=== PATIENT | male | born 1950 | race Caucasian/White ===

== ENCOUNTER → 2023-09-15 08:33 | Outpatient (REF) | payer MEDICARE, BC, SELFPAY | LOC: RAD 08:33 | PROVIDERS: ATTENDING PHYSICIAN Surgery Vascular Surgery; FAMILY PHYSICIAN Family Medicine | DX: I73.9 Peripheral vascular disease, unspecified (principal) | CPT/HCPCS: 93922; 93925 ==

== ENCOUNTER → 2024-03-23 14:43 | Outpatient (REF) | payer MEDICARE, BC, SELFPAY | LOC: RAD 14:43 | PROVIDERS: ATTENDING PHYSICIAN Surgery Vascular Surgery; FAMILY PHYSICIAN Family Medicine | DX: I73.9 Peripheral vascular disease, unspecified (principal) | CPT/HCPCS: 93922; 93925 ==

== ENCOUNTER 2024-06-29 11:09 | Emergency (ER) | payer MEDICARE, BC, SELFPAY ==
[2024-06-29 11:22] VITALS: BP 160/100
--- NOTE | 2024-06-29 11:44 | ED.GENMED ---
History of Present Illness
General
Chief Complaint: Abdominal Symptoms
Source: patient
Exam Limitations: none
Time Seen by Provider: 06/29/24 11:29
Nursing documentation reviewed up to this point in time: agreed with
History of Present Illness
History of Present Illness:
Patient is a 73-year-old male with history hypertension, hyperlipidemia, diabetes presenting to the emergency department for evaluation of epigastric discomfort. Patient states that 2 days ago he had somewhat acute onset of epigastric
discomfort/pressure after eating hard-boiled eggs. He then had an episode of nausea and vomiting after eating lunch shortly after. Symptoms seem to completely resolve and he has been asymptomatic since.
Patient was seen by his primary care provider yesterday who did an EKG in office and said it was normal. He was able to schedule hoseman appointment for mid July. PCP said symptoms might be GI related.
Patient denies any current nausea vomiting, chest pain, shortness of breath, diet, abdominal pain.
Patient remains asymptomatic although his family thought he should be evaluated the emergency department given his cardiac risk factors including hypertension, hyperlipidemia, and diabetes prompting visit today.
Past History
Past History
ED Past Medical History: HTN, Hypercholesterolemia, NIDDM and Other (Peripheral vascular/peripheral arterial disease)
ED Past Surgical History: Tonsilectomy and Other (Right lower extremity peripheral bypass)
Social History
Tobacco: Non-smoker
Alcohol: Occasional
Drug: None
Personal:
Living: with family
Review of Systems
Review of Systems
Allergies reviewed?: Yes
All Other Systems: ROS reviewed and negative except as documented in HPI and ROS
Phy Exam
Physical Exam
Physical Exam:
Vitals: Hypertensive, otherwise vital signs are stable. Afebrile
General: Patient is very well appearing, no acute distress
Skin: Warm and dry, no rashes or lesions
Head: Normocephalic, atraumatic
Eyes: Sclera nonicteric. EOMs intact. No nystagmus.
Throat: Protecting airway
Neck: Normal ROM, no cervical spine tenderness, no meningismus
Cardiac: Regular rate and rhythm, no murmurs.
Pulm: Normal respiratory effort, no wheezes, rales, rhonchi heard on exam.
Abdomen: Abdomen soft. No abdominal tenderness. Negative Ross sign
Extremities: No evidence of cyanosis or edema. Palpable DP pulses bilaterally
Neuro: AAOx3. Grossly intact
Psychiatric: Normal affect.
Course
Orders/Labs/Results
Orders:
Orders
06/29/24 11:42
US Abdomen Complete/Upper Urgent
Comment:
Reason For Exam: Epigastric/RUQ pain
06/29/24 11:43
Electrocardiogram (*1) Urgent
Reason for Study: Abdominal Pain
EKG- Treatment ONCE
06/29/24 11:49
Complete Blood Count/With Diff Urgent
Comprehensive Metabolic Panel Urgent
Lipase Urgent
Troponin I Urgent
Abnormal Lab Results
06/29/24
11:49
RBC 4.51 L 10^6/uL
(4.70-6.10)
Absolute Lymphs (auto) 1.1 L 10^3/uL
(1.2-3.4)
Lymphocytes % 17.1 L %
(20.5-51.1)
Monocytes % 9.7 H %
(1.7-9.3)
BUN 25 H mg/dl
(9-20)
Glucose 174 H mg/dl
(70-99)
Total Bilirubin 1.4 H mg/dl
(0.2-1.3)
06/29/24 11:49
06/29/24 11:49
Vital Signs
Initial and Last Documented VS:
Initial Vital Signs
Temp Pulse Resp BP Pulse Ox
98.0 F 90 16 160/100 98
06/29/24 11:22 06/29/24 11:22 06/29/24 11:22 06/29/24 11:22 06/29/24 11:22
Last Documented Vital Signs
Temp Pulse Resp BP Pulse Ox
98.5 F 85 20 191/74 99
06/29/24 11:51 06/29/24 11:51 06/29/24 11:51 06/29/24 15:15 06/29/24 15:30
MDM/Problems Addressed
Differential Diagnosis Includes:
Not limited to: GERD, gastric ulcer, cholelithiasis, acute cholecystitis, acute coronary syndrome, etc
MDM/Problems Addressed:
73 year old male presenting after episode of post-prandial epigastric pain associated with nausea/vomiting 2 days ago. He has been asymtpomatic since. No associated chest pain or SOB. Normal EKG at PCP yesterday. Vitals and exam as above. While
patient completely asymptomatic in ED differential includes possible GI sources including GERD, biliary colic, gastric ulcer, etc. Lower suspicion for cardiac etiology although will obtain screening EKG and troponin. Will check labs and abdominal US.
Update: EKG shows NSR without ischemic changes. Troponin undetectable - which I feel is sufficient to r/o acute WI since it has been 48 hours since symptoms. Labs unremarkable w/ no leukocytosis or LFT elevation. Lipase normal. US did show
cholelithiasis w/ some sludge. Clinically not consistent with acute cholecystitis as patient is afebrile, asymptomatic, with no leukocytosis or LFT elevation. Overall impression is likely episode of biliary colic 2 days ago. Do not suspect ACS or
cardiac etiology. Given patient is asymptomatic without suspicion for acute cholecysitis feel he is stable for discharge home at this point. Return precautions discussed. Advised low fat diet. General surgery info given for outpatient f/u. He will
keep current appt with cardiology.
Chronic conditions affecting care:
Hypertension
Acute Exacerbation and/or Progression of Chronic Illness:
Acutely hypertensive
*Radiology
Radiology exam reviewed: radiology read reviewed
*Pulse Oximetry
Patient hypoxic: no
*EKG
Interpreted by ED Provider?: Yes
EKG Intrepretation Date: 06/29/24
Interpretation: normal
Comparison EKG: no changes
Heart Rate: 76
Rate: normal
Rhythm: sinus
Center: normal axis
Interval: normal QT interval
Ischemia: no ischemia
*Research Associate Professor Interpretation
Rate: Research Associate Professor- N/A
*Critical Care Note
Total Time (30-74mins, 75-104mins- exclusive of procedures): Not Applicable
ED Attending Note
-
Portions of this chart may have been created with voice recognition software.� Occasional wrong word or��sound alike� substitutions may have occurred due to the inherent limitations of voice recognition software.
Discharge Plan
Departure
Patient Disposition: Home (Routine Discharge)
Date of Disposition: 06/29/24
Time of Disposition: 15:48
Patient with high blood pressure during this ER visit?: Yes
Condition: Good
Covid-19: Not Applicable
Discharge Problem:
Cholelithiases
Instructions: Gallstones ED, Low-fat diet, BLOOD PRESSURE
Prescriptions:
No Action
atorvastatin 40 MG tablet
40 mg PO QPM Qty: 60 0RF
clopidogrel 75 MG tablet
75 mg PO DAILY Qty: 60 0RF
lisinopril 5 MG tablet
5 mg PO DAILY Qty: 60 0RF
metformin 500 MG tablet
500 mg PO DAILY@1400
cefdinir 300 mg Capsule
300 mg PO Q12 14 Days Qty: 28 0RF
Referrals:
Javi Ladd MD [Active] - Call in 1-3 days for appt
Maurice Sheikh DO [Family Provider] -
Activity Restrictions/Additional Instructions:
Return to the emergency department for any chest pain, shortness of breath, fevers, severe abdominal pain, intractable nausea/vomiting, worsening in current symptoms, or any other concerns
-As discussed�your abdominal ultrasound did show evidence of gallstones today. You should follow a low-fat diet. Symptoms�please return to the emergency department. follow-up with general surgery for further evaluation/management.
-You should keep your appointment with cardiology for further evaluation.
Monitor your symptoms closely and return to the emergency department with any acute worsening/new symptoms or any other concerns
Interventions
Interventions:
*Risk Screen - Suicide Last Done: 06/29/24 11:22
*General Assessment Last Done: 06/29/24 11:51
*Neglect/Abuse Screening Last Done: 06/29/24 11:22
*ED- Fall Risk Assessment Last Done: 06/29/24 11:51
*ED COVID-19 Vaccine History Last Done: 06/29/24 11:51
*Nursing Disposition Last Done: 06/29/24 15:56
JV-Qazkvu-Xwkpivelev Assessment Last Done: 06/29/24 11:51
Discharge Date and Time
Discharge Date/Time: 06/29/24 15:58
Print Language: CITIZEN OF [place]
[2024-06-29 11:46] VITALS: BMI 25.8
[2024-06-29 11:48] VITALS: BP 187/89
[2024-06-29 11:51] VITALS: BP 187/89
[2024-06-29 12:00] VITALS: BP 175/101
[2024-06-29 12:03] LABS: % Basophils 0.5 % (0-2); % Eosinophils 1.1 % (0-6); % Immature Granulocytes 0.3 % (0-0.5); % Lymphocytes 17.1 % (20.5-51.1); % Monocytes 9.7 % (1.7-9.3); % Neutrophils 71.3 % (42.2-75.2); Absolute Eosinophils 0.1 10^3/uL (0-0.7); Absolute Lymphocytes 1.1 10^3/uL (1.2-3.4); Absolute Monocytes 0.6 10^3/uL (0.1-0.6); Absolute Neutrophils 4.5 10^3/uL (1.4-6.5); Hematocrit 40.4 % (39.0-52.0); Hemoglobin 13.8 g/dL (13.0-18.0); Mean Corp Hgb Conc. 34.2 g/dL (33.0-37.0); Mean Corpuscular Hgb 30.6 pg (27.0-31.0); Mean Corpuscular Volume 89.6 fL (80.0-94.0); Mean Platelet Volume 9.6 fL (7.4-10.4); Nucleated Red Blood Cells % 0 % (-); Platelet Count 165 10^3/uL (130-400); Red Blood Cell Count 4.51 10^6/uL (4.70-6.10); Red Cell Dist. Width 12.7 % (11.5-14.5); White Blood Cell Count 6.4 10^3/uL (4.8-10.8)
[2024-06-29 12:17] LABS: ALT (SGPT) 21 U/L (0-50); AST (SGOT) 27 U/L (17-59); Albumin 4.6 g/dl (3.5-5.0); Alkaline Phosphatase 59 U/L (38-126); Blood Urea Nitrogen 25 mg/dl (9-20); Calcium 9.7 mg/dl (8.4-10.2); Carbon Dioxide 26 mmol/L (22-30); Chloride 104 mmol/L (98-107); Estimated Creatinine Clearance 78 ml/min; Glucose 174 mg/dl (70-99); Lipase 130 U/L (23-300); Potassium 3.9 mmol/L (3.5-5.1); Sodium 140 mmol/L (135-145); Total Bilirubin 1.4 mg/dl (0.2-1.3); Total Protein 7.6 g/dl (6.3-8.2); eGFR > 60.00
[2024-06-29 12:26] LABS: Troponin I < 0.012 ng/ml
[2024-06-29 15:15] VITALS: BP 191/74
== END 2024-06-29 15:58 | disposition home or self-care (01) ==
LOC: EMR 11:09
PROVIDERS: Physician Assistant; EMERGENCY PHYSICIAN Emergency Medicine; REFERRING PHYSICIAN Family Medicine
DX: K80.20 Calculus of gallbladder without cholecystitis without obstruction (principal); E11.9 Type 2 diabetes mellitus without complications; E78.00 Pure hypercholesterolemia, unspecified; I10 Essential (primary) hypertension
CPT/HCPCS: 99284; 76700; 80053; 83690; 84484; 85025; 93005

== ENCOUNTER 2024-08-03 16:17 | Emergency (ER) | payer MEDICARE, BC, SELFPAY ==
[2024-08-03 16:33] VITALS: BP 210/110
[2024-08-03 17:17] LABS: Hematocrit 39.2 % (39.0-52.0); Hemoglobin 13.5 g/dL (13.0-18.0); Mean Corp Hgb Conc. 34.4 g/dL (33.0-37.0); Mean Corpuscular Volume 90.1 fL (80.0-94.0); Mean Platelet Volume 9.5 fL (7.4-10.4); Platelet Count 164 10^3/uL (130-400); Red Blood Cell Count 4.35 10^6/uL (4.70-6.10); Red Cell Dist. Width 12.8 % (11.5-14.5); White Blood Cell Count 10.1 10^3/uL (4.8-10.8)
[2024-08-03 17:24] LABS: ALT (SGPT) 25 U/L (0-50); AST (SGOT) 46 U/L (17-59); Albumin 4.5 g/dl (3.5-5.0); Alkaline Phosphatase 55 U/L (38-126); Blood Urea Nitrogen 27 mg/dl (9-20); Calcium 9.5 mg/dl (8.4-10.2); Carbon Dioxide 24 mmol/L (22-30); Chloride 106 mmol/L (98-107); Glucose 175 mg/dl (70-99); Lipase 173 U/L (23-300); Potassium 3.9 mmol/L (3.5-5.1); Sodium 141 mmol/L (135-145); Total Bilirubin 1.5 mg/dl (0.2-1.3); Total Protein 7.3 g/dl (6.3-8.2); eGFR > 60.00
[2024-08-03 18:41] VITALS: BMI 25.3
[2024-08-03 19:10] VITALS: BP 162/81
[2024-08-03 19:24] VITALS: BP 168/89
[2024-08-03 19:30] VITALS: BP 157/77
[2024-08-03 21:24] VITALS: BP 140/70
--- NOTE | 2024-08-03 21:30 | ED.GENMED ---
History of Present Illness
General
Chief Complaint: Abdominal Pain
Source: patient
Exam Limitations: none
Time Seen by Provider: 08/03/24 19:00
History of Present Illness
History of Present Illness:
73-year-old male who presents with upper abdominal pain. Patient states he ate an omelette this morning. Was recently diagnosed with gallstones. States that he just felt bloated and pressure in his upper abdomen. Patient states he was here
recently because his son was worried he was having a heart attack. Patient presents again for evaluation but states he vomited at home and now feels much better. Symptoms are only mild on my assessment. No hematochezia or melena. No fevers. No
back pain.
Past History
Past History
ED Past Medical History: HTN, Hypercholesterolemia, NIDDM and Other (Peripheral vascular/peripheral arterial disease)
ED Past Surgical History: Tonsilectomy and Other (Right lower extremity peripheral bypass)
Social History
Tobacco: Non-smoker
Alcohol: Occasional
Drug: None
Personal:
Living: with family
Phy Exam
Physical Exam
Physical Exam:
CONSTITUTIONAL Patient alert and oriented to person, place and time. Well-appearing. Vital signs reviewed.
HEAD atraumatic, normocephalic.
EYES eyelids normal to inspection, Extraocular muscles intact, Conjunctiva normal, Sclera normal.
NECK normal range of motion, Trachea midline, no jugular venous distention.
RESPIRATORY CHEST No respiratory distress noted, Chest expansion equal, Bilateral breath sounds clear.
CARDIOVASCULAR regular rate and rhythm, Heart sounds normal.
ABDOMEN moderate right upper quadrant tenderness. No palpable pulsatile masses
BACK normal inspection, no obvious deformities
UPPER EXTREMITY range of motion normal, Motor strength normal, no cyanosis, no edema.
LOWER EXTREMITY range of motion normal, Motor strength normal, no cyanosis, no edema.
NEURO Speech normal, No focal motor deficits, Carlos coma scale 15, Memory normal, Cranial Nerves intact to screening exam.
SKIN skin warm, dry, and normal in color.
Course
Orders/Labs/Results
Orders:
Orders
08/03/24 16:18
Electrocardiogram (*1) Urgent
Reason for Study: Abdominal Pain
EKG- Treatment ONCE
08/03/24 16:38
EKG- Treatment ONCE
08/03/24 16:47
CMP [Comprehensive Metabolic Panel] Urgent
Complete Blood Count/No Diff Urgent
Lipase Urgent
08/03/24 19:17
CT Abd/pelvis W Iv Cont Urgent
Comment:
Reason For Exam: mid abd pain, hypertension
Abnormal Lab Results
08/03/24
16:47
RBC 4.35 L 10^6/uL
(4.70-6.10)
BUN 27 H mg/dl
(9-20)
Glucose 175 H mg/dl
(70-99)
Total Bilirubin 1.5 H mg/dl
(0.2-1.3)
08/03/24 16:47
08/03/24 16:47
Vital Signs
Initial and Last Documented VS:
Initial Vital Signs
Temp Pulse Resp BP Pulse Ox
98.3 F 73 18 210/110 100
08/03/24 16:33 08/03/24 16:33 08/03/24 16:33 08/03/24 16:33 08/03/24 16:33
Last Documented Vital Signs
Temp Pulse Resp BP Pulse Ox
98.3 F 92 20 140/70 99
08/03/24 16:33 08/03/24 21:24 08/03/24 21:24 08/03/24 21:24 08/03/24 21:24
MDM/Problems Addressed
Differential Diagnosis Includes:
AAA, cholelithiasis, cholecystitis, small bowel obstruction, ileus, pancreatitis, hepatitis, colitis, enteritis
MDM/Problems Addressed:
Cholelithiasis
*Radiology
Radiology exam reviewed: radiology read reviewed
*Pulse Oximetry
Patient hypoxic: no
*EKG
Interpreted by ED Provider?: Yes
Interpretation: normal
Rate: normal
Rhythm: sinus
[place]: normal axis
Interval: normal interval
Ischemia: no ischemia
*Critical Care Note
Total Time (30-74mins, 75-104mins- exclusive of procedures): Not Applicable
Data Reviewed
Review of Other/Old Records Reveals: Radiology Studies (June 2024 ultrasound report reviewed showing cholelithiasis)
Source: patient
Prescriptions/Medications Considered But Not Given:
Considered antibiotics but no evidence of cholecystitis
Patient Management
Escalation/DeEscalation of care consider admission/obs:
No AAA. Cholelithiasis noted. Will refer to surgery for gallbladder but also GI for possible upper endoscopy if symptoms persist. Recommended bland diet
ED Attending Note
-
Portions of this chart may have been created with voice recognition software.� Occasional wrong word or��sound alike� substitutions may have occurred due to the inherent limitations of voice recognition software.
Discharge Plan
Departure
Patient Disposition: Home (Routine Discharge)
Date of Disposition: 08/03/24
Time of Disposition: 21:33
Patient with high blood pressure during this ER visit?: Yes
Discharge Problem:
Cholelithiasis
Instructions: Gallstones (DC), Abdominal Pain, BLOOD PRESSURE
Prescriptions:
No Action
atorvastatin 40 MG tablet
40 mg PO QPM Qty: 60 0RF
clopidogrel 75 MG tablet
75 mg PO DAILY Qty: 60 0RF
lisinopril 5 MG tablet
5 mg PO DAILY Qty: 60 0RF
metformin 500 MG tablet
500 mg PO DAILY@1400
Referrals:
Jacob Ferrell MD [Active] -
Maurice Sheikh DO [Family Provider] -
Activity Restrictions/Additional Instructions:
Please see surgery in the next 3 to 5 days for follow-up and reevaluation. Please avoid fatty foods. Please also see gastroenterology in the next 3 to 4 weeks for follow-up and reevaluation and to consider endoscopy if symptoms persist.
Immediately for worsening pain, intractable vomiting, fevers, or any other concern
Interventions
Interventions:
*Risk Screen - Suicide Last Done: 08/03/24 19:13
*General Assessment Last Done: 08/03/24 19:13
*Neglect/Abuse Screening Last Done: 08/03/24 19:13
*ED- Fall Risk Assessment Last Done: 08/03/24 19:16
*ED COVID-19 Vaccine History Last Done: 08/03/24 16:33
NH-Htafsu-Vyhkpcogdf Assessment Last Done: 08/03/24 18:41
Discharge Date and Time
Print Language: JAPANESE
== END 2024-08-03 21:46 | disposition home or self-care (01) ==
LOC: EMR 16:17
PROVIDERS: Emergency Medicine; EMERGENCY PHYSICIAN Emergency Medicine; FAMILY PHYSICIAN Family Medicine
DX: K80.20 Calculus of gallbladder without cholecystitis without obstruction (principal); I10 Essential (primary) hypertension; E78.00 Pure hypercholesterolemia, unspecified; E11.51 Type 2 diabetes mellitus with diabetic peripheral angiopathy without gangrene
CPT/HCPCS: 99284; 74177; 80053; 83690; 85027; 93005; Q9967

== ENCOUNTER 2024-08-09 05:45 | Inpatient (IN) | payer MEDICARE, BC, SELFPAY ==
[2024-08-09 00:47] VITALS: BMI 25.6
[2024-08-09 00:56] VITALS: BP 178/98
[2024-08-09 01:38] LABS: % Basophils 0.5 % (0-2); % Immature Granulocytes 0.2 % (0-0.5); % Lymphocytes 12.1 % (20.5-51.1); % Monocytes 8.9 % (1.7-9.3); % Neutrophils 77.3 % (42.2-75.2); Absolute Eosinophils 0.1 10^3/uL (0-0.7); Absolute Monocytes 0.8 10^3/uL (0.1-0.6); Absolute Neutrophils 6.7 10^3/uL (1.4-6.5); Hematocrit 38.7 % (39.0-52.0); Hemoglobin 13.3 g/dL (13.0-18.0); Mean Corp Hgb Conc. 34.4 g/dL (33.0-37.0); Mean Corpuscular Hgb 31.2 pg (27.0-31.0); Mean Corpuscular Volume 90.8 fL (80.0-94.0); Mean Platelet Volume 9.5 fL (7.4-10.4); Nucleated Red Blood Cells % 0 % (-); Platelet Count 172 10^3/uL (130-400); Red Blood Cell Count 4.26 10^6/uL (4.70-6.10); Red Cell Dist. Width 12.9 % (11.5-14.5); White Blood Cell Count 8.6 10^3/uL (4.8-10.8)
[2024-08-09 01:56] LABS: ALT (SGPT) 122 U/L (0-50); AST (SGOT) 34 U/L (17-59); Albumin 4.5 g/dl (3.5-5.0); Alkaline Phosphatase 81 U/L (38-126); Blood Urea Nitrogen 19 mg/dl (9-20); Calcium 9.5 mg/dl (8.4-10.2); Carbon Dioxide 27 mmol/L (22-30); Chloride 105 mmol/L (98-107); Glucose 190 mg/dl (70-99); Lipase 100 U/L (23-300); Potassium 4.1 mmol/L (3.5-5.1); Sodium 140 mmol/L (135-145); Total Bilirubin 1.4 mg/dl (0.2-1.3); Total Protein 7.3 g/dl (6.3-8.2); eGFR > 60.00
--- NOTE | 2024-08-09 02:58 | ED.GENMED ---
History of Present Illness
General
Chief Complaint: Abdominal Pain
Source: patient
Exam Limitations: none
Time Seen by Provider: 08/09/24 02:26
Nursing documentation reviewed up to this point in time: agreed with
History of Present Illness
History of Present Illness:
This is a 73-year-old male with a past medical history of hypertension, hyperlipidemia, gallstones, diabetes, who presents emergency department today with concerns of sharp right upper quadrant pain for the past few hours. Patient states that this
started after eating a meal at lunch. He also has nausea but no vomiting. He denies any fevers or chills. Patient does have a history of gallstones and gotten similar pain in the past and was attributed to biliary colic and he did schedule
appointment to see general surgery but this appointment is not until mid August. Patient denies any burning with urination, any chest pain. He denies any diarrhea.
Past History
Past History
ED Past Medical History: HTN, Hypercholesterolemia, NIDDM and Other (Peripheral vascular/peripheral arterial disease)
ED Past Surgical History: Tonsilectomy and Other (Right lower extremity peripheral bypass)
Social History
Tobacco: Non-smoker
Alcohol: Occasional
Drug: None
Personal:
Living: with family
Review of Systems
Review of Systems
All Other Systems: ROS reviewed and negative except as documented in HPI and ROS
Phy Exam
Physical Exam
Physical Exam:
General: Patient is well appearing and in no acute distress; non-toxic
Skin: Warm and dry, no rashes or lesions
Head: Normocephalic, atraumatic
Eyes: Sclera non-icteric. EOMs intact.
Cardiac: Regular rate and rhythm, no murmurs
Peripheral Vascular: No lower extremity swelling or edema
Pulm: Normal respiratory effort, no wheezes, rales, rhonchi
Abdomen: Generalized epigastric tenderness to palpation
Neuro: CN II-XII intact, no focal neurologic deficits.
Psychiatric: Appropriate mood and affect.
Course
Orders/Labs/Results
Orders:
Orders
08/09/24 01:14
Complete Blood Count/With Diff Urgent
Comprehensive Metabolic Panel Urgent
Lipase Urgent
08/09/24 03:37
US Abdomen Limited Urgent
Reason For Exam: right upper quadrant pain
08/09/24 03:38
Electrocardiogram (*1) Urgent
Reason for Study: Abdominal Pain
EKG- Treatment ONCE
IV Insert/Care/Rem.- Treatment PRN
08/09/24 04:22
Troponin I Urgent
08/09/24 04:50
LevoFLOXacin 750 MG/150 ML [Levaquin] 750 mg in 150 ml IV NOW
MetroNIDAZOLE 500 MG/100 ML [Flagyl 500 mg] 100 ml IV NOW
08/09/24 05:05
Admit/Transfer Patient As Directed
Co-Sign Provider:
Level of Care: Inpatient admission
Assign to:: Medical/Surgical
Physician / Group: Hospitalist
Diagnosis: Acute Cholecystitis
Reason for Hospitalization: IV antibiotics/Possible OR
Expected length of stay greater than two midnights?: Yes
ELOS- Estimated Length of Stay in days: 2
I certify the patient meets the requirements for IP care: Yes
PRN Pain Medication Management As Directed
May give lesser potent ordered pain med per pt: Yes
preference::
Protocol:: Medication orders for pain may be administered in a
manner that supports deferring to patient preference
when the pt is:
- Requesting an ordered lesser potent pain medication.
Least to most potent pain medications are defined
as: acetaminophen < NSAID < tramadol < opioids
(morphine, oxycodone, hydromorphone).
- Requesting a lesser dose of the same medication IF
ORDERED.
- Requesting a less intrusive route of administration
if both routes are prescribed by the provider (PO <
IV).
08/09/24 05:06
Code Status As Directed
Resuscitation Status: Full Code
08/09/24 05:17
SURGICAL CONSULT Routine
Consulting Provider: Lj Cabrera
Was physician already notified: Yes
08/09/24 06:00
Flush (0.9% Sodium Chloride) [Flush (Nss)] See Dose Instructions IV PER PROTOCOL
Abnormal Lab Results
08/09/24
01:14
RBC 4.26 L 10^6/uL
(4.70-6.10)
Hct 38.7 L %
(39.0-52.0)
MCH 31.2 H pg
(27.0-31.0)
Absolute Neuts (auto) 6.7 H 10^3/uL
(1.4-6.5)
Absolute Lymphs (auto) 1.0 L 10^3/uL
(1.2-3.4)
Absolute Monos (auto) 0.8 H 10^3/uL
(0.1-0.6)
Neutrophils % 77.3 H %
(42.2-75.2)
Lymphocytes % 12.1 L %
(20.5-51.1)
Glucose 190 H mg/dl
(70-99)
Total Bilirubin 1.4 H mg/dl
(0.2-1.3)
ALT 122 H U/L
(0-50)
08/09/24 01:14
08/09/24 01:14
Vital Signs
Initial and Last Documented VS:
Initial Vital Signs
Temp Pulse Resp BP Pulse Ox
97.9 F 84 18 178/98 100
08/09/24 00:56 08/09/24 00:56 08/09/24 00:56 08/09/24 00:56 08/09/24 00:56
Last Documented Vital Signs
Temp Pulse Resp BP Pulse Ox
97.9 F 84 24 151/78 98
08/09/24 00:56 08/09/24 06:00 08/09/24 06:00 08/09/24 05:00 08/09/24 06:00
MDM/Problems Addressed
Differential Diagnosis Includes:
Differentials include acute cholecystitis, pancreatitis, gastroenteritis
MDM/Problems Addressed:
73-year-old male with a history of gallstone/biliary colic presents emergency department today with concerns of right upper quadrant pain. On physical exam he is well-appearing in no acute distress he is afebrile he has mild cytosis but he does
have tenderness palpation right upper abdominal quadrant and epigastric region. He is found to have acute cholecystitis on ultrasound. Patient is allergic to penicillins so alternatively will start Flagyl and levofloxacin. Patient given IV
fluids. Surgery called contacted made aware of case, patient referred for admission for [facility], case reviewed with attending
*Pulse Oximetry
Patient hypoxic: no
*Critical Care Note
Total Time (30-74mins, 75-104mins- exclusive of procedures): Not Applicable
Data Reviewed
Review of Other/Old Records Reveals: Records (Reviewed previous ER physician documentation from 08/03/2024 patient seen for upper abdominal pain after eating an omelette)
Source: patient and records
Patient Management
Discussion with other providers: Hospitalist and Cottrell Blower
Escalation/DeEscalation of care consider admission/obs:
Admit indicated
ED Attending Note
-
Portions of this chart may have been created with voice recognition software.� Occasional wrong word or��sound alike� substitutions may have occurred due to the inherent limitations of voice recognition software.
Discharge Plan
Departure
Patient Disposition: Admit
Date of Disposition: 08/09/24
Time of Disposition: 05:17
Admit to: Med/Surg
Presentation/result/management discussed w/ accepting MD/DO: Hospitalist
Patient with high blood pressure during this ER visit?: Yes
Condition: Fair
Discharge Problem:
Acute cholecystitis
Interventions
Interventions:
*Risk Screen - Suicide Last Done: 08/09/24 00:56
*General Assessment Last Done: 08/09/24 03:05
*Neglect/Abuse Screening Last Done: 08/09/24 00:56
*ED- Fall Risk Assessment Last Done: 08/09/24 03:05
*ED COVID-19 Vaccine History Last Done: 08/09/24 03:05
IN-Mzwvmv-Tnugasyfdc Assessment Last Done: 08/09/24 03:05
[2024-08-09 03:04] VITALS: BP 133/74
[2024-08-09 03:07] VITALS: BP 133/74
[2024-08-09 04:23] VITALS: BP 131/68
[2024-08-09 05:00] VITALS: BP 151/78
--- NOTE | 2024-08-09 05:10 | HPS.HSE ---
Family Physician
-
Family Physician: Maurice Sheikh
Chief Complaint
-
Abdominal pain
History of Present Illness
This is a 72-year-old male with past medical history of cwc-secfhcy-ruwfghkrs diabetes, hypertension, hyperlipidemia and peripheral arterial disease for which he takes Plavix presents to the emergency department with acute episode of epigastric
abdominal pain.
Patient reports intermittent episodes of epigastric pain over the last several weeks. He said that in June she had severe epigastric pain and came in thinking he had a MA. They woke up for cardiovascular disease was negative at that time. Was
found to have gallstones and was felt to have biliary colic. Last week he had another episode of severe epigastric pain but again was seen in the ED and had imaging with cholelithiasis and thought to have biliary colic. He improved with
pain medicines and was discharged.
Patient reported that this evening while attempting to eat some apples he had severe epigastric pain that would not resolve and he had to come to the emergency department at around 12 midnight. Denies any nausea or vomiting. He continues to denies
fevers or chills.
In the emergency department today he had a temp of nine 7.9, blood pressure 130/68 with a pulse of 67 and he was satting 98% on room air. CBC was unremarkable with a white count of 8.6 normal hemoglobin and platelets. Electrolytes BUN and
creatinine were stable. His LFTs shows a slight elevation in ALT and a T. bili of 1.4 blood work was otherwise unremarkable. The ultrasound of the abdomen shows acute cholecystitis with no ductal dilation.
Medical History
Past Medical History
Past Medical History: Reports HTN, NIDDM and Other (As above peripheral arterial disease)
Past Surgical History: Reports Other
Social History
Tobacco: Non-smoker
Alcohol: Occasional
Drug: None
Personal:
Living: With Family
Employment: Employed
Family History
Family History: Not pertinent (Reviewed)
Allergies / Home Medications
Allergies reflects when Allergies were last updated in [facility].
Home Medications with original date entered in [facility]
Allergy/Medication List:
Allergies
Allergy/AdvReac Type Severity Reaction Status Date / Time
poison rivas extract Allergy Severe severe rash Verified 06/17/22 15:07
aspirin Allergy Intermediate facial Verified 06/17/22 15:07
swelling
Penicillins Allergy Mild hives, Verified 06/17/22 15:07
swelling
Home Medications
atorvastatin 40 mg tablet 40 mg PO QPM #60 tabs 05/05/21
clopidogrel 75 mg tablet 75 mg PO DAILY #60 tabs 05/05/21
lisinopril 5 mg tablet 5 mg PO DAILY #60 tabs 05/05/21
metformin 500 mg tablet 500 mg PO DAILY@1400 Diabetes 08/11/21
levofloxacin 750 mg tablet 750 mg PO DAILY 06/17/22
Review of Systems
-
History Source: Patient
Constitutional: Reports No Symptoms
EENT: Reports No Symptoms
Respiratory: Reports No Symptoms
Cardiac: Reports No Symptoms
Abdomen/GI: Reports Abdominal Pain
: Reports No Symptoms
Musculoskeletal: Reports No Symptoms
Skin: Reports No Symptoms
Neurological: Reports No Symptoms
Endocrine: Reports No Symptoms
Hematologic/Lymphatic: Reports No Symptoms
Psych: Reports No Symptoms
Physical Exam
Vital Signs
Vital Signs
Temp Pulse Resp BP Pulse Ox
97.9 F 64 23 131/68 97
08/09/24 00:56 08/09/24 04:23 08/09/24 04:15 08/09/24 04:23 08/09/24 04:45
Physical Exam
General: Well Developed, Well Nourished and Conversant
HEENT: NormoCephalic, Anicteric, Moist mucous membranes and Atraumatic
Respiratory: Clear
Cardiac: S1/S2 and Regular Rhythm
Breast: Deferred by me
GI: Soft, Non Distended, Normal Bowel Sounds and Tender
Rectal: Deferred by Provider
Genito-urinary: Deferred by me
Musculoskeletal: No Clubbing, No Cyanosis and No Edema
Skin: Warm
Neuro: AO x 3 and Nonfocal/grossly intact
Hematologic/Lymphatic: No Lymphadenopathy
Psych: Calm
Laboratory Results
-
08/09/24 01:14
08/09/24 01:14
Laboratory Results
Total Bilirubin 1.4 mg/dl (0.2-1.3) H 08/09/24 01:14
AST 34 U/L (17-59) 08/09/24 01:14
ALT 122 U/L (0-50) H 08/09/24 01:14
Alkaline Phosphatase 81 U/L (38-126) 08/09/24 01:14
Lipase 100 U/L (23-300) 08/09/24 01:14
Data Reviewed
-
Ultrasound: Report Reviewed by me
Lab Data: Labs Reviewed by me
Old Records: Reviewed
Impression/Plan
-
IMPRESSION:
73-year-old history of gallstones and biliary colic over the last few weeks presents to the emergency department with acute epigastric abdominal pain was found to have acute cholecystitis on ultrasound. There was no biliary ductal dilatation. LFTs
shows no significant abnormality. Lipase was normal. He is afebrile and hemodynamically stable. No evidence of acute cholangitis.
PLAN:
1. Acute cholecystitis
-Admit to [facility]
-N.p.o.
-IV fluids with LR
-Blood cultures if spike fever
-Given allergies, Flagyl plus Levaquin 750 mg daily
-Surgical consulted and aware likely OR today
2. Peripheral arterial disease
-While n.p.o., hold Plavix for now, restart once tolerating diet
-Hold lisinopril, restart once tolerating diet
-Restart atorvastatin once tolerating diet
3. Pfi-isbsfrw-eyidspvbf diabetes
-Hold metformin
-Fingerstick glucose every 6 hours, low-dose sliding scale
DVT prophylaxis�heparin subcu
CODE STATUS�full code
[2024-08-09] MEDS: FLAGYL 500 MG 100 IV (05:12)
[2024-08-09 05:13] LABS: Troponin I < 0.012 ng/ml
[2024-08-09] MEDS: LEVAQUIN 150 IV (05:13)
[2024-08-09] MEDS: TYLENOL 650 MG PO (08:22)
[2024-08-09] MEDS: LR 1000 IV (08:23)
[2024-08-09] MEDS: NOVOLOG FLEXPEN-LOW RESISTANCE SC (08:30)
[2024-08-09 08:31] LABS: Glucose - Point of Care 135 mg/dl (70-99)
[2024-08-09 08:47] VITALS: BP 153/78
--- NOTE | 2024-08-09 10:10 | CM ---
CM met with pt bedside
Pt resides with his spouse in a 2SH with 3STE, 14 steps up to 2nd floor
Pt is indep with his ADLs without ADs
He has a WW and SPC for use as needed
Hx with [facility], denies financial insecurities
PCP- Maurice Sheikh
Rx- [facility] [address]
Anticipate dc later today pending toleration of diet per nursing
Plan for cholecystectomy on 08/14/24
Discharge Disposition- home no needs, spouse transport
--- NOTE | 2024-08-09 11:46 | CON.GS ---
Consultation
-
Date/Time Consultation Performed: 08/09/24
Requesting Provider: Ulises
Performing Provider: Rick
Reason for Consultation: Biliary colic
Medical History
-
Chief Complaint: Abd pain
History of Present Illness:
73M with acute onset abd pain, localized to epigastrium with radiation to RUQ. Began after eating salad dressing. Many similar episodes in the past. Denies f/c/n/v, denies changes to stool/urine. This am he feels back to baseline, pain has resolved.
Past Medical History
Past Medical History: Other (HTN, NIDDM and Other (As above peripheral arterial disease))
Past Surgical History: Other (BLE bypass with vein conduit (right fem-pop , left fem-dp ))
Social History
Tobacco: Non-Smoker
Alcohol: Occasional
Personal:
Living: With Family
Family History
Family History: Reviewed & Noncontributory
Allergies / Home Medications
Allergy/AdvReac Type Severity Reaction Status Date / Time
aspirin Allergy facial Verified 08/09/24 00:58
swelling
Penicillins Allergy hives, Verified 08/09/24 00:58
swelling
poison rivas extract Allergy severe rash Verified 08/09/24 00:58
�Medication �Instructions �Recorded �Confirmed �Type
atorvastatin 40 mg tablet 40 mg PO QPM #60 tabs 05/05/21 08/09/24 Rx
clopidogrel 75 mg tablet 75 mg PO DAILY #60 tabs 05/05/21 08/09/24 Rx
lisinopril 5 mg tablet 5 mg PO DAILY #60 tabs 05/05/21 08/09/24 Rx
metformin 500 mg tablet 500 mg PO DAILY Diabetes 08/11/21 08/09/24 History
garlic 300 mg capsule 300 mg PO DAILY Supplement 08/09/24 08/09/24 History
levofloxacin 750 mg tablet 750 mg PO DAILY Infection 6 days 08/09/24 Rx
#6 tabs
metronidazole 500 mg tablet 500 mg PO Q8H Infection 6 days #18 08/09/24 Rx
tabs
ondansetron 4 mg disintegrating 4 mg PO Q8H PRN nausea and 08/09/24 Rx
tablet vomiting 5 days #14 tabs
oxycodone 10 mg tablet 10 mg PO Q8H PRN Pain 5 days #14 08/09/24 Rx
tabs
Review of Systems
-
A 10 point review of systems was completed, and was negative except as per HPI.
Physical Exam
Vital Signs
Temp Pulse Resp BP Pulse Ox
97.6 F 84 24 153/78 98
08/09/24 08:46 08/09/24 06:00 08/09/24 06:00 08/09/24 08:47 08/09/24 06:00
08/08/24 08/09/24 08/10/24
06:59 06:59 06:59
Actual Weight 83.1 kg
Body Mass Index (BMI) 25.6
Lab Results
08/09/24 01:14
08/09/24 01:14
WBC 8.6 10^3/uL (4.8-10.8) 08/09/24 01:14
Hgb 13.3 g/dL (13.0-18.0) 08/09/24 01:14
Hct 38.7 % (39.0-52.0) L 08/09/24 01:14
Plt Count 172 10^3/uL (130-400) 08/09/24 01:14
Abs Immat Gran (auto) 0.0 10^3/uL (0-0.05) 08/09/24 01:14
Neutrophils % 77.3 % (42.2-75.2) H 08/09/24 01:14
Physical Exam
General: Well Developed, Well Nourished and No Apparent Distress
HEENT: Normocephalic and Anicteric
GI: Soft, Non Tender and Non Distended
Skin: Warm and Dry
Neuro: AO x 3
Psych: Calm
Data Reviewed
-
Ultrasound: Image Personally Visualized and interpreted, Report Reviewed by me and Discussed with Patient
Labs: Labs Reviewed by me and Discussed with Patient
Old Records: Reviewed
Assessment / Plan
-
73M with recurrent biliary colic, on plavix for BLE bypass history
AFVSS, clinically resolved
Labs unremarkable except mild Tbili/ALT elevation
US with stones, mild GBWT, trace PCF, no ductal dilation, neg sono murphys
Plan:
PO challenge and DC home if tolerates
My office will arrange outpt lap noah Wednesday, he will hold plavix until then
D/w his Vascular surgeon, OK to hold plavix as needed
ASA allergy so he cannot take aspirin in the meantime
--- NOTE | 2024-08-09 11:56 | W.PN.UPDATE ---
Update Note
Progress Note Update
H&P from 0510 this morning. I have reviewed the patient's chart and independently evaluated him at the bedside in the ED this morning. I have discussed this case with Dr. Cabrera from general surgery.
73-year-old male with PAD s/p BLLE bypass, NIDDM, HTN, HLD, H/O diabetic foot infections and toe amputations that presented to the hospital with right upper quadrant and epigastric pain. States he has had multiple intermittent occurrences of
abdomen pain that started a couple of weeks prior to arrival. Would subsequently reside before recurring again multiple days later. Was seen last week in the ED and had imaging that showed cholelithiasis. Was discharged with presumptive diagnosis
of biliary colic that improved with analgesia. Had recurrence of discomfort yesterday evening after dinner with pain 9/10 in severity. Had episode of nausea associated. Pain subsequently improved upon arrival to the ED this time. Labs with
elevated bilirubin though otherwise unremarkable. Patient hemodynamically stable and afebrile. Abdominal ultrasound showed cholelithiasis with gallbladder wall thickening but did show negative Ross sign, no biliary duct dilation. Evaluated by
general surgery today who is recommending outpatient elective cholecystectomy after Plavix washout. Was started on IV Levaquin and metronidazole due to listed allergies to other antibiotics in the past
Fairly unremarkable exam. AAO x 4 and nontoxic. Cardiopulmonary normal. Mild abdomen tenderness though normal bowel sounds and no peritoneal signs. Palpable pulses and no edema. No FND.
Acute cholecystitis. Low suspicion for choledocholithiasis or cholangitis. RUQ equivocal. Symptomatically improved as of this morning. Evaluated by surgery who is recommending elective cholecystectomy after Plavix washout. Currently undergoing
PO challenge. If tolerating oral intake will plan to discharge home later. Will hold Plavix pending cholecystectomy on 08/14/2024. Advised to hold MICHELLE inhibitor for 48 hours prior to procedure. Will continue Levaquin and Flagyl oral at current
doses through time of procedure. Will provide short course of as needed oxycodone for breakthrough pain, Zofran for nausea
Full code
Expected discharge later if tolerating diet
Discussed with patient that he should return to the ED if he develops worsening pain, high fevers of >102 �F, or significant nausea/vomiting that prevents him from eating or drinking
[2024-08-09 12:17] LABS: Glucose - Point of Care 176 mg/dl (70-99)
[2024-08-09] MEDS: NOVOLOG FLEXPEN-LOW RESISTANCE 1 UNITS SC (12:33)
[2024-08-09] MEDS: TYLENOL PO ×2 (12:35→12:43)
--- NOTE | 2024-08-09 17:23 | W.DCSUMMARY ---
Discharge Summary
Discharge Data
Date of Admission: 08/09/24
Date of Discharge: 08/09/24
Total time spent discharging patient (in min): 35
-
Pending Results: No
Hospital Course
Discharging Physician :� Carlo Frias DO
Disposition :���� Home
Principal Discharge diagnosis :�
Acute Calculous Cholecystitis
Cholelithiasis
Chronic Discharge diagnosis :�
PAD s/p BLLE bypass (On clopidogrel)
NIDDM
HTN
HLD
H/O DM foot infection
Penicillin Allergy
Hospital Course :�
73M that presented with recurrent abdomen/epigastric discomfort and nausea. Intermittent episodes over two weeks. Had OP imaging that showed cholelithiasis, was given prelim Dx of biliary colic. On 08/08/24 he developed 9/10 epigastric pain after
dinner, while on low fat diet, that prompted him to come to the ED. Symptoms resolved shortly after arrival to the ED. Had RUQ US that demonstrated signs of cholecystitis but lack of sonographic Ross sign. Was started on Levofloxacin and
metronidazole and provided CLD. Evaluated by surgery who recommended OP elective procedure after 5 day clopidogrel washout. Was given PO challenge and tolerated low fat diet without recurrent symptoms. Was discharged with directive to hold Plavix
for 5 days and lisinopril for 2 days prior to elective cholecystectomy scheduled for 08/14/2024. NPO night before procedure. Was directed to return to the ED if he developed recurrent severe abdomen pain, Temp > 102 F, or intractable N/V.
Consultants :
General Surgery: Lj Cabrera MD
Important imaging findings :�
Abdomen US (08/09/24)
FINDINGS: Cholelithiasis with thickened gallbladder wall measuring 6 mm. There is trace pericholecystic fluid. Negative sonographic Ross's sign. There is no evidence of biliary ductal dilation. The common bile duct measures 6 mm. Liver length is
14.3 cm, with top normal considered 18.0 cm. Liver echogenicity appears normal with no evidence of a focal hepatic lesion. The pancreas appears within normal limits. Survey views of right kidney are obtained with no evidence of hydronephrosis. The
right kidney measures 10.5 cm in length. There is a large cyst with internal septation measuring 8.2 cm.
IMPRESSION: Cholelithiasis with gallbladder wall thickening and trace pericholecystic free fluid, however a negative Ross sign. Consolation of findings are considered equivocal for acute cholecystitis. Consider HIDA or surgical consultation for
further evaluation. There is no biliary duct dilation.
Procedure findings :� N/A
Follow-up :
Elective Cholecystectomy on 08/14/24 with General Surgery
NPO after midnight day before surgery
Follow up with PCP in 1-2 weeks
Discharge Plan
-
Patient Disposition: Home (Routine Discharge)
Discharge Diagnosis/Procedures: Acute cholecystitis
Condition: Good
Diet: Low Fat
Additional Diets: Safest foods to consume are clear liquids such as chicken broth, apple juice, shaved ice
Activity: As tolerated
Additional Activity: No exercising or lifting weight >10 pounds while awaiting procedure
Driving Restrictions: No driving for 24 hours
Bathing Restrictions: None
Blood Work: None
Others Tests: None
Activity Restrictions/Additional Instructions:
Follow-up with the surgery after discharge from the hospital. Procedure scheduled on Wednesday August 14, 2024
If you develop recurrence of severe pain or develop nausea and vomiting that prevents you from holding down food or drink then return to the emergency department for reevaluation.
Instructions: Low-fat diet, Cholecystectomy
Referrals:
Lj Cabrera MD [Active] - (My office will call you to arrange surgery on outpatient basis for WednesdayAugust 14)
Maurice Sheikh DO [Family Provider] -
Additional Discharge Medication Instructions: Stop clopidogrel until directed to resume, by your surgeon, after your cholecystectomy
Stop taking lisinopril after your morning dose on 08/12/2024
Take levofloxacin 750 mg daily and metronidazole 500 mg every 8 hours through the day of your procedure
Use Tylenol 1000 mg up to 4 times daily for pain
Use oxycodone as needed for breakthrough pain (10 mg for severe, 5 mg for moderate)
Use Zofran 4 mg sublingual tablet as needed for nausea and vomit
Prescriptions:
New
levofloxacin 750 mg tablet
750 mg PO DAILY 6 Days Qty: 6 0RF
metronidazole 500 mg tablet
500 mg PO Q8H 6 Days Qty: 18 0RF
oxycodone 10 mg tablet
10 mg PO Q8H PRN (Reason: Pain) 5 Days Qty: 14 0RF
ondansetron 4 mg tablet,disintegrating
4 mg PO Q8H PRN (Reason: nausea and vomiting) 5 Days Qty: 14 0RF
Continued
atorvastatin 40 MG tablet
40 mg PO QPM Qty: 60 0RF
lisinopril 5 MG tablet
5 mg PO DAILY Qty: 60 0RF
metformin 500 MG tablet
500 mg PO DAILY
garlic 300 mg Capsule
300 mg PO DAILY
Held
clopidogrel 75 MG tablet
75 mg PO DAILY Qty: 60 0RF
Hold Instructions: Stop until surgery direct you to resume
Discharge Orders:
Discharge Patient (As Directed); Ordered 08/09/24
Ordered By: Carlo Frias
Discharge Date and Time
Discharge Date/Time: 08/09/24 14:24
Print Language: UPPER SORBIAN
== END 2024-08-09 14:24 | disposition home or self-care (01) | DRG 446 ==
LOC: ED 05:45
PROVIDERS: Physician Assistant; ADMITTING PHYSICIAN Internal Medicine; ATTENDING PHYSICIAN Internal Medicine; CONSULT PHYSICIAN Surgery; EMERGENCY PHYSICIAN Student in an Organized Health Care Education/Training Program; FAMILY PHYSICIAN Family Medicine
DX: K80.00 Calculus of gallbladder with acute cholecystitis without obstruction (principal); I10 Essential (primary) hypertension; E11.9 Type 2 diabetes mellitus without complications; E78.00 Pure hypercholesterolemia, unspecified; Z79.02 Long term (current) use of antithrombotics/antiplatelets; Z79.84 Long term (current) use of oral hypoglycemic drugs; Z79.899 Other long term (current) drug therapy; Z88.0 Allergy status to penicillin
CPT/HCPCS: 76705; 80053; 82962; 83690; 84484; 85025; 93005; 96365; 96367; 99285

== ENCOUNTER 2024-08-14 06:19 | Day surgery (SDC) | payer MEDICARE, BC, SELFPAY ==
[2024-08-14] VITALS (10 sets, daily range): BP systolic 146–168; BP diastolic 78–88; BMI 24.9
[2024-08-14] MEDS: TYLENOL 1000 MG PO (13:05)
[2024-08-14] MEDS: NORMOSOL-R/PLASMALYTE-A 1000 IV (13:07)
[2024-08-14 13:17] LABS: Glucose - Point of Care 124 mg/dl (70-99)
[2024-08-14] MEDS: HEPARIN 5000 UNITS SC (13:54)
--- NOTE | 2024-08-14 15:45 | OR.RPT ---
Operative Report
Operative Report
Primary Surgeon: Rick
Assisting: Elieser BARRETT
Pre-op Diagnosis: Biliary colic
Post-op Diagnosis: Same
Procedure Performed: Robotic cholecystectomy
Anesthesia Type: GETA
Specimen / Cultures: Gallbladder
Estimated Blood Loss: 20cc
Complications: None immediate
Operative Findings: Soflty distended gallbladder with fatty thickened wall and fibrotic posterior plane
Date of Surgery:� 08/14/24
Indications: This 74M developed symptomatic cholelithiasis. Lab work showed mildly elevated liver enzymes. Imaging showed no ductal dilation. Laparoscopic cholecystectomy with robotic assist was elected. Plavix was held 7 days prior to surgery.
Description of procedure: The patient was placed on the operating table in the supine position. General anesthesia was induced. A time-out was completed verifying correct patient, procedure, site, positioning, and special equipment prior to
beginning this procedure. An orogastric tube was placed. The abdomen was prepped and draped in the usual sterile fashion. A stab incision was made in left upper quadrant and the Veress needle was inserted. Proper position was confirmed by aspiration
and saline meniscus test. The abdomen was insufflated with carbon dioxide to a pressure of 12mmHg. The patient tolerated insufflation well.
A 8mm trocar was then inserted above the umbilicus. The laparoscope was inserted and the abdomen inspected. No injuries from initial trocar placement or Veress needle insertion were noted. Additional 8mm trocars were then inserted in the following
locations: two in the right lower quadrant and to the left of the umbilicus and just above. The abdomen was inspected and no abnormalities were found. The table was placed in the reverse Trendelenburg position with the right side up. The dome of
the gallbladder was grasped with an atraumatic grasper and retracted over the dome of the liver. The infundibulum was then grasped with an atraumatic grasper and retracted toward the right lower quadrant. This maneuver exposed Calot�s triangle. The
gallbladder was notably elongated with a high waist. The peritoneum overlying the gallbladder infundibulum was then incised and the cystic duct and cystic artery identified and circumferentially dissected so that a clear view of the liver was
achieved through a window between the cystic duct an cystic artery. At this time, the only two structures going into the gallbladder were the cystic artery and cystic duct. The common duct was identified with ICG and protected.
The cystic duct was then doubly clipped and divided. The cystic artery was controlled with bipolar and divided. The gallbladder was then dissected from its peritoneal attachments by electrocautery. The gallbladder was removed using an endoscopic
retrieval bag placed through the umbilical port. The gallbladder was passed off the table as a specimen. The gallbladder fossa was closely inspected. There was no evidence of bleeding from the gallbladder fossa or cystic artery or leakage of the
bile from the cystic duct stump. The umbilical trocar site was closed at the fascial level with 2-0 PDS. Secondary trocars were removed under direct vision and noted to be hemostatic. The abdomen was allowed to collapse. The skin was closed with
subcuticular sutures of 4-0 monocryl and topical skin adhesive. The orogastric tube was removed.
The patient tolerated the procedure well and was taken to the postanesthesia care unit in stable condition.
The assistance of Elieser BARRETT was required due to the complexity of the procedure. During the procedure she assisted with retraction, resection, and closure of the wound.
[2024-08-14 16:21] LABS: Glucose - Point of Care 173 mg/dl (70-99)
[2024-08-14] MEDS: ZOFRAN 4 MG IV (18:24)
[2024-08-14] MEDS: COMPAZINE 10 MG IV (19:04)
== END 2024-08-14 19:32 | disposition home or self-care (01) ==
LOC: SDS 06:19
PROVIDERS: ATTENDING PHYSICIAN Surgery
DX: K80.10 Calculus of gallbladder with chronic cholecystitis without obstruction (principal); R74.8 Abnormal levels of other serum enzymes
CPT/HCPCS: 47562; 88304; 82962

== ENCOUNTER → 2024-10-05 08:24 | Outpatient (REF) | payer MEDICARE, BC, SELFPAY | LOC: RAD 08:24 | PROVIDERS: ATTENDING PHYSICIAN Registered Nurse; FAMILY PHYSICIAN Family Medicine | DX: I73.9 Peripheral vascular disease, unspecified (principal) | CPT/HCPCS: 93922; 93925 ==

== ENCOUNTER → 2025-01-18 10:08 | Outpatient (REF) | payer MEDICARE, BC, SELFPAY | LOC: RAD 10:08 | PROVIDERS: ATTENDING PHYSICIAN Family Medicine | DX: N28.1 Cyst of kidney, acquired (principal) | CPT/HCPCS: 74170; Q9967 ==